=== PATIENT | male | born 1945 | race Caucasian/White ===

== ENCOUNTER 2017-04-22 16:00 | Emergency (ER) | payer OTHER, BC ==
[2017-04-22 16:23] LABS: URINE APPEARANCE Clear; URINE BILIRUBIN Negative (NEGATIVE); URINE BLOOD Negative (NEGATIVE); URINE GLUCOSE (UA) Negative (NEGATIVE); URINE KETONE Negative (NEGATIVE); URINE LEUK ESTERASE Negative (NEGATIVE); URINE NITRITE Negative (NEGATIVE); URINE PROTEIN Negative (NEGATIVE)
[2017-04-22 16:26] LABS: URINE COLOR YELLOW
[2017-04-22 16:31] VITALS: BP 145/85; PULSE 87; TEMP 97.7; BMI 26.9
[2017-04-22 16:35] LABS: BASO % 1.4 % (0-2.0); MCH 31.1 pg (25.7-33.7); MCHC 33.2 g/dl (32.0-35.9); MEAN CELL VOLUME 93.8 fl (80-96); MEAN PLT VOLUME 8.3 fl (7.5-11.1); NEUT % 51.2 % (42.8-82.8); PLATELET COUNT 242 K/MM3 (134-434); RDW 13.3 % (11.9-15.9)
[2017-04-22 16:49] LABS: EOS # 0.2 #; LYMPH # 2.9 # (8-40); MONO # 0.6 #; NEUT # 4.2 # (42.8-82.8)
[2017-04-22 16:50] LABS: BASO # 0.1 # (0.1-1)
[2017-04-22] MEDS ORDERED: SODIUM CHLORIDE 0.9% 500 ML INFUS.BAG IV ONE (17:04)
--- NOTE | 2017-04-22 17:06 | PDOC ---
History of Present Illness <Sachin Casas - Last Filed: 04/22/17 17:06> - General History Source: Patient Exam Limitations: No Limitations - History of Present Illness Initial Comments: 04/22/17 20:35 72 year old male with significant past medical history of kidney stones and HLD , who presents to the emergency room complaining of 4 days of progressively worsening right flank pain. The pain is worse with movement. Denies recent injury or heavy lifting. The patient states that this pain feels similar to the pain he experienced in the past with kidney stones except it is much more mild. Denies dysuria, hematuria, or any other urinary symptoms. Denies fever, chills, nausea, vomiting. Denies chest pain, SOB, cough. Denies recent travel, leg swelling. Allergies: penicillin and sulfa <Aicha Ness - Last Filed: 04/22/17 20:36> - General Chief Complaint: Pain Stated Complaint: RT FLANK PAIN Time Seen by Provider: 04/22/17 16:24 Past History - Past Medical History COPD: No Diabetes: Yes (PREDIABETES) HTN: Yes Hypercholesterolemia: Yes - Surgical History Abdominal Surgery: Yes (HERNIA REPAIR) - Suicide/Smoking/Psychosocial Hx Smoking History: Former smoker Have you smoked in the past 12 months: No Information on smoking cessation initiated: No Hx Alcohol Use: (nightly) <Sachin Casas - Last Filed: 04/22/17 17:06> <Aicha Ness - Last Filed: 04/22/17 20:36> - Past Medical History Allergies/Adverse Reactions: Allergies Allergy/AdvReac Type Severity Reaction Status Date / Time Penicillins Allergy Verified 04/22/17 16:03 Sulfa (Sulfonamide Allergy Verified 04/22/17 16:03 Antibiotics) Home Medications: Ambulatory Orders Alfuzosin HCl [Alfuzosin HCl ER] 10 mg PO DAILY 10/10/15 Aspirin Coated [Ecotrin -] 81 mg PO DAILY 10/10/15 Atorvastatin Ca [Lipitor] 20 mg PO HS 10/10/15 Bupropion HCl [Wellbutrin Xl -] 150 mg PO BID 10/10/15 Cyanocobalamin/Folic AC/Vit B6 [Folbee Tablet] 1 each PO BID 10/10/15 Metformin HCl 500 mg PO BID 10/10/15 [place]-3 Fatty Acids [[place]-3] 1,000 mg PO BID 10/10/15 Review of Systems - Review of Systems Able to Perform ROS?: Yes Comments:: 04/22/17 20:36 GENERAL/CONSTITUTIONAL: No fever or chills. No weakness. HEAD, EYES, EARS, NOSE AND THROAT: No change in vision. No ear pain or discharge. No sore throat. GASTROINTESTINAL: No nausea, vomiting, diarrhea or constipation. GENITOURINARY: No dysuria, frequency, or change in urination. CARDIOVASCULAR: No chest pain or shortness of breath. RESPIRATORY: No cough, wheezing, or hemoptysis. MUSCULOSKELETAL: +right sided flank pain. SKIN: No rash NEUROLOGIC: No headache, vertigo, loss of consciousness, or change in strength/ sensation. ENDOCRINE: No increased thirst. No abnormal weight change. HEMATOLOGIC/LYMPHATIC: No anemia, easy bleeding, or history of blood clots. ALLERGIC/IMMUNOLOGIC: No hives or skin allergy. <Aicha Nses - Last Filed: 04/22/17 20:36> *Physical Exam - Vital Signs Last Vital Signs Temp Pulse Resp BP Pulse Ox 97.7 F 87 16 145/85 100 04/22/17 16:00 04/22/17 16:00 04/22/17 16:00 04/22/17 16:00 04/22/17 16:00 <Sachin Casas - Last Filed: 04/22/17 17:06> - Vital Signs Last Vital Signs Temp Pulse Resp BP Pulse Ox 97.7 F 87 16 145/85 100 04/22/17 16:00 04/22/17 16:00 04/22/17 16:00 04/22/17 16:00 04/22/17 16:00 - Physical Exam Comments: 04/22/17 20:36 GENERAL: Awake, alert, and fully oriented, in no acute distress HEAD: No signs of trauma EYES: PERRLA, EOMI, sclera anicteric, conjunctiva clear ENT: Auricles normal inspection, hearing grossly normal, nares patent, oropharynx clear without exudates. Moist mucosa NECK: Normal ROM, supple, no lymphadenopathy, JVD, or masses LUNGS: Breath sounds equal, clear to auscultation bilaterally. No wheezes, and no crackles HEART: Regular rate and rhythm, normal S1 and S2, no murmurs, rubs or gallops ABDOMEN: Soft, nontender, normoactive bowel sounds. No guarding, no rebound. No masses EXTREMITIES: Normal range of motion, no edema. No clubbing or cyanosis. No cords, erythema, or tenderness BACK: No CVA tenderness. No midline spinal tenderness in cervical/thoracic/ lumbar region. No back ttp. NEUROLOGICAL: Normal speech, cranial nerves intact, negative pronator drift, 5/ 5 strength in all 4 extremities, normal sensation to light touch in all 4 extremities, normal cerebellar exam, normal gait, normal reflexes and tone SKIN: Warm, Dry, normal turgor, no rashes or lesions noted. <Aicha Ness - Last Filed: 04/22/17 20:36> ED Treatment Course - LABORATORY CBC & Chemistry Diagram: 04/22/17 16:30 04/22/17 16:30 - ADDITIONAL ORDERS Additional order review: Laboratory Results 04/22/17 16:15 Urine Color Yellow Urine Appearance Clear Urine pH 6.0 Ur Specific [place] 1.020 Urine Protein Negative Urine Glucose (UA) Negative Urine Ketones Negative Urine Blood Negative Urine Nitrite Negative Urine Bilirubin Negative Urine Urobilinogen 1.0 Ur Leukocyte Esterase Negative 04/22/17 16:30 RBC 4.79 MCV 93.8 MCHC 33.2 RDW 13.3 MPV 8.3 Neutrophils % 51.2 Lymphocytes % 36.5 Monocytes % 7.9 Eosinophils % 3.0 Basophils % 1.4 - RADIOLOGY Radiology Studies Ordered: Category Date Time Status CHEST PA & LAT [RAD] Stat Radiology 04/22/17 17:03 Ordered <Sachin Casas - Last Filed: 04/22/17 17:06> - LABORATORY CBC & Chemistry Diagram: 04/22/17 16:30 04/22/17 16:30 - ADDITIONAL ORDERS Additional order review: Laboratory Results 04/22/17 04/22/17 04/22/17 16:30 16:25 16:15 Sodium 136 Potassium 4.1 Chloride 101 Carbon Dioxide 28 Anion Gap 7 L BUN 15 Creatinine 1.1 Creat Clearance w eGFR > 60 Random Glucose 92 Calcium 9.6 Total Bilirubin 0.8 AST 28 ALT 22 Alkaline Phosphatase 56 Troponin I 0.00 Total Protein 7.5 Albumin 4.0 Urine Color Yellow Urine Appearance Clear Urine pH 6.0 Ur Specific [place] 1.020 Urine Protein Negative Urine Glucose (UA) Negative Urine Ketones Negative Urine Blood Negative Urine Nitrite Negative Urine Bilirubin Negative Urine Urobilinogen 1.0 Ur Leukocyte Esterase Negative 04/22/17 16:30 RBC 4.79 MCV 93.8 MCHC 33.2 RDW 13.3 MPV 8.3 Neutrophils % 51.2 Lymphocytes % 36.5 Monocytes % 7.9 Eosinophils % 3.0 Basophils % 1.4 - Medications Given in the ED: ED Medications Discontinued Medications Generic Name Dose Route Start Last Admin Trade Name Isidroq PRN Reason Stop Dose Admin Sodium Chloride 1,000 ml 04/22/17 17:04 04/22/17 17:15 Normal Saline - IV 04/22/17 17:05 1,000 ml ONCE ONE Administration <Aicha Ness - Last Filed: 04/22/17 20:36> *DC/Admit/Observation/Transfer <Sachin Casas - Last Filed: 04/22/17 17:06> - Attestations Scribe Attestion: 04/22/17 20:36 Documentation prepared by DIPAK Freeman, acting as director of medical review for Malena Madsen MD. <Aicha Ness - Last Filed: 04/22/17 20:36> - Discharge Dispostion Condition at time of disposition: Stable
[2017-04-22 17:12] LABS: ALK PHOS 56 U/L (32-92); ANION GAP 7 (8-16); BILIRUBIN,TOTAL 0.8 mg/dl (0.2-1.0); CALCIUM 9.6 mg/dl (8.4-10.2); CO2 28 mmol/L (22-28); CREATININE 1.1 mg/dl (0.6-1.3); GLUCOSE,RANDOM 92 mg/dl (74-106); SGOT/AST 28 U/L (10-42); SGPT/ALT 22 U/L (10-40); TOT PROT 7.5 g/dl (6.4-8.3)
[2017-04-22] MEDS ORDERED: SODIUM CHLORIDE 500 ML IV STA (20:33)
--- NOTE | 2017-04-22 20:33 | PDOC ---
*Physical Exam - Vital Signs Last Vital Signs Temp Pulse Resp BP Pulse Ox 97.7 F 87 16 145/85 100 04/22/17 16:00 04/22/17 16:00 04/22/17 16:00 04/22/17 16:00 04/22/17 16:00 ED Treatment Course - LABORATORY CBC & Chemistry Diagram: 04/22/17 16:30 04/22/17 16:30 - ADDITIONAL ORDERS Additional order review: Laboratory Results 04/22/17 04/22/17 04/22/17 16:30 16:25 16:15 Sodium 136 Potassium 4.1 Chloride 101 Carbon Dioxide 28 Anion Gap 7 L BUN 15 Creatinine 1.1 Creat Clearance w eGFR > 60 Random Glucose 92 Calcium 9.6 Total Bilirubin 0.8 AST 28 ALT 22 Alkaline Phosphatase 56 Troponin I 0.00 Total Protein 7.5 Albumin 4.0 Urine Color Yellow Urine Appearance Clear Urine pH 6.0 Ur Specific [place] 1.020 Urine Protein Negative Urine Glucose (UA) Negative Urine Ketones Negative Urine Blood Negative Urine Nitrite Negative Urine Bilirubin Negative Urine Urobilinogen 1.0 Ur Leukocyte Esterase Negative 04/22/17 16:30 RBC 4.79 MCV 93.8 MCHC 33.2 RDW 13.3 MPV 8.3 Neutrophils % 51.2 Lymphocytes % 36.5 Monocytes % 7.9 Eosinophils % 3.0 Basophils % 1.4 - Medications Given in the ED: ED Medications Discontinued Medications Generic Name Dose Route Start Last Admin Trade Name Freq PRN Reason Stop Dose Admin Sodium Chloride 1,000 ml 04/22/17 17:04 04/22/17 17:15 Normal Saline - IV 04/22/17 17:05 1,000 ml ONCE ONE Administration Progress Note - Progress Note Progress Note: Care of this patient received from Abdominal/pelvic CT performed to evaluate patient's right flank discomfort. On chest x-ray, there was question of infiltrate at the right base. Also, since the patient's flank discomfort was similar but much less severe to his previous renal colic pain, CT performed for full evaluation for presence of ureteral stones. Abdominal/pelvic CT results, interpreted by of radiology staff: No evidence of pneumonia or other acute process at base of right lung. No evidence of hydronephrosis/hydroureter ureter or ureteral stones. There was evidence of diverticulosis in the sigmoid colon without evidence of acute diverticulitis. However, in the right colon, especially at the hepatic flexure , colonic wall was thickened consistent with colitis. No clear indication that this was diverticular in nature. Other than bilateral inguinal fluid collections (consistent with post herniorrhaphy changes), study showed no significant abnormalities. Results discussed with the patient and his . He is not having any recent diarrhea or bowel changes except for mild increase in constipation in the last several days. He has not noted any black stools or blood in his stool. 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 Therefore, he is in favor of empirical treatment of the colitis which may be infectious, although not clearly related to diverticular disease. Cipro 500 mg twice a day along with Flagyl, 3 times a day for one week will be prescribed. First doses of each antibiotic will be administered here in the emergency room. Patient should return to the emergency room if he has worsening pain or experiences fever/vomiting. He should follow-up with his doctor within the next 5-7 days (earlier if possible) *DC/Admit/Observation/Transfer Diagnosis at time of Disposition: Colitis - Discharge Dispostion Disposition: HOME Condition at time of disposition: Stable - Prescriptions Prescriptions: Ciprofloxacin HCl [Cipro] 500 mg PO BID #14 tablet Ciprofloxacin HCl [Cipro] 500 mg PO BID #14 tablet Metronidazole [Flagyl -] 250 mg PO TID #21 tablet Metronidazole [Flagyl -] 250 mg PO TID #21 tablet - Referrals - Patient Instructions Printed Discharge Instructions: DI for Colitis Additional Instructions: Light diet; drink plenty of fluids Ciprofloxacin 500 mg twice a day for one week Flagyl 250 mg 3 times a day for one week Follow-up with your doctor within the next 5 days (call office tomorrow for appointment) Return to ER if you have worsening pain/fever/vomiting - Post Discharge Activity
[2017-04-22] MEDS ORDERED: CIPROFLOXACIN 500 MG TABLET (RESTRICTED TO ID) PO ONE (20:53)
[2017-04-22] MEDS ORDERED: metroNIDAZOLE 250 MG TABLET PO ONE (20:54)
[2017-04-22] MEDS ORDERED: metroNIDAZOLE 250 MG TABLET ONE (21:08)
[2017-04-22] MEDS ORDERED: CIPROFLOXACIN 250 MG TABLET (RESTRICTED TO ID) PO ONE (21:08)
== END 2017-04-22 21:27 | disposition home or self-care (01) ==
LOC: FER 16:00
PROC: 3E0337Z Introduction of Electrolytic and Water Balance Substance into Peripheral Vein, Percutaneous Approach (ICD-10-PCS; principal; 2017-04-22)
DX: K52.9 Noninfective gastroenteritis and colitis, unspecified (principal); E78.5 Hyperlipidemia, unspecified; Z87.442 Personal history of urinary calculi
CPT/HCPCS: 36415; 71020-TC; 74177-TC; 80053; 81003; 84484; 85025; 87086; 99284-25

== ENCOUNTER 2017-11-06 10:09 | Emergency (ER) | payer OTHER, BC ==
[2017-11-06 10:14] VITALS: BP 137/92; PULSE 65; TEMP 98.7; BMI 28.3
--- NOTE | 2017-11-06 10:33 | PDOC ---
Suture Removal/Wound Check HPI - History of Present Illness Chief Complaint: Laceration Stated Complaint: LEFT THUMB LACERATION Time Seen by Provider: 11/06/17 10:14 History Source: Yes: Patient Exam Limitations: Yes: No Limitations Treated at: [facility] ED - Onset of Previous Treatment Comment:: 11/06/17 11:22 72 yo M w a hx of HTN, pre-diabetes, HCL here with a 3 cm lac on his left thumb. He was using a razor knife to open a box and by accidentally cut his L thumb. He is currently experiencing no pain. He came in with a gauze pad to stop the bleeding. Upon arrival to the ER there was no active bleeding. 11/06/17 11:25 Past History - Past Medical History Allergies/Adverse Reactions: Allergies Allergy/AdvReac Type Severity Reaction Status Date / Time Penicillins Allergy Verified 11/06/17 10:09 Sulfa (Sulfonamide Allergy Verified 11/06/17 10:09 Antibiotics) Home Medications: Ambulatory Orders Alfuzosin HCl [Alfuzosin HCl ER] 10 mg PO DAILY 10/10/15 Aspirin Coated [Ecotrin -] 81 mg PO DAILY 10/10/15 Atorvastatin Ca [Lipitor] 20 mg PO HS 10/10/15 Bupropion HCl [Wellbutrin Xl -] 150 mg PO BID 10/10/15 Cyanocobalamin/Folic AC/Vit B6 [Folbee Tablet] 1 each PO BID 10/10/15 [place]-3 Fatty Acids [[place]-3] 1,000 mg PO BID 10/10/15 metFORMIN HCL [Metformin HCl] 500 mg PO BID 10/10/15 COPD: No Diabetes: Yes (PREDIABETES) HTN: Yes Hypercholesterolemia: Yes - Surgical History Abdominal Surgery: Yes (HERNIA REPAIR) - Suicide/Smoking/Psychosocial Hx Smoking History: Former smoker Have you smoked in the past 12 months: No Information on smoking cessation initiated: No Hx Alcohol Use: No (daily) Suture Removal/Wound Check PE - Physical Exam Comments: 11/06/17 10:31 Left Thumb: There is a 3 cm cut on the volar surface of the thumb distal to the DIP joint. There is full sensation and strength in the thumb. Full ROM. EXTREMITIES: No cyanosis. No clubbing. No edema. No calf tenderness. MUSCULOSKELETAL Normal range of motion at all joints. No bony deformities or tenderness. No CVA tenderness. SKIN: Warm and dry. Normal capillary refill. No rashes. No jaundice. NEUROLOGICAL: Alert, awake, appropriate. Cranial nerves 2-12 intact. No deficits to light touch and temperature in face, upper extremities and lower extremities. No motor deficits in the in face, upper extremities and lower extremities. Normoreflexic in the upper and lower extremities. Normal speech. Toes are down- going bilaterally. Gait is normal without ataxia. GENERAL: Well developed, well nourished. Awake and alert. No acute distress. HEENT: Normocephalic, atraumatic. PERRLA, EOMI. No conjunctival pallor. Sclera are non- icteric. Moist mucous membranes. Oropharynx is clear. NECK: Supple. Full ROM. No JVD. Carotid pulses 2+ and symmetric, without bruits. No thyromegaly. No lymphadenopathy. CARDIOVASCULAR: Regular rate and rhythm. No murmurs, rubs, or gallops. Distal pulses are 2+ and symmetric. PULMONARY: No evidence of respiratory distress. Lungs clear to auscultation bilaterally. No wheezing, rales or rhonchi. ABDOMINAL: Soft. Non-tender. Non-distended. No rebound or guarding. No organomegaly. Normoactive bowel sounds. PSYCHIATRIC: Cooperative. Good eye contact. Appropriate mood and affect. 11/06/17 11:16 *Review of Systems - Review of Systems Comments:: 11/06/17 11:32 SKIN: Positive: Laceration on thumb Absent: rash, itching, pallor CONSTITUTIONAL: Absent: fever, chills, diaphoresis, generalized weakness, malaise, loss of appetite HEENT: Absent: rhinorrhea, nasal congestion, throat pain, throat swelling, difficulty swallowing, mouth swelling, ear pain, eye pain, visual Changes CARDIOVASCULAR: Absent: chest pain, syncope, palpitations, irregular heart rate, lightheadedness , peripheral edema RESPIRATORY: Absent: cough, shortness of breath, dyspnea with exertion, orthopnea, wheezing, stridor, hemoptysis GASTROINTESTINAL: Absent: abdominal pain, abdominal distension, nausea, vomiting, diarrhea, constipation, melena, hematochezia GENITOURINARY: Absent: dysuria, frequency, urgency, hesitancy, hematuria, flank pain, genital pain MUSCULOSKELETAL: Absent: myalgia, arthralgia, joint swelling HEMATOLOGIC/IMMUNOLOGIC: Absent: easy bleeding, easy bruising, lymphadenopathy, frequent infections ENDOCRINE: Absent: unexplained weight gain, unexplained weight loss, heat intolerance, cold intolerance NEUROLOGIC: Absent: headache, focal weakness or paresthesias, dizziness, unsteady gait, seizure, mental status changes, bladder or bowel incontinence PSYCHIATRIC: Absent: anxiety, depression, suicidal or homicidal ideation, hallucinations. *Physical Exam - Vital Signs Last Vital Signs Temp Pulse Resp BP Pulse Ox 98.7 F 65 18 137/92 96 11/06/17 10:11/06/17 10:11/06/17 10:11/06/17 10:11/06/17 10:09 Procedures - Laceration/Wound Repair Left Medial Distal Volar 1st digit Wound Length: 2.6 to 5.0 cm Wound Explored: clean, no foreign body present Wound's Depth, Shape: superficial Irrigated w/ Saline: Yes Betadine Prep: No Anesthesia: 1% Lidocaine Wound Repaired With: Sutures Suture Size/Type: 6:0 Number of Sutures: 3 Medical Decision Making - Medical Decision Making 11/06/17 11:37 72 yo M, pre-diabetes, htn, hcl here for a superficial thumb lack. Wound was clean, sutured up with 3 stitches. Full sensation, full strength, full ROM. Updated Tetanus here in the ER. Patient will come back in 7-10 days to get stitches removed. *DC/Admit/Observation/Transfer Diagnosis at time of Disposition: Laceration of thumb - Discharge Dispostion Disposition: HOME Condition at time of disposition: Improved - Referrals Referrals: John Coburn [Primary Care Provider] - - Patient Instructions Printed Discharge Instructions: DI for Laceration Repair Additional Instructions: Apply bacitracin twice a day. Come back in 7-10 days to have the sutures removed , or go to your primary doc to have the sutures taken out. Please come back to the ER immediately if your thumb starts to become red, painful, you feel extra numbness or tingling, develop a fever or have any other concerns. - Post Discharge Activity
[2017-11-06] MEDS ORDERED: LIDOCAINE HCL 1%, 10 MG/ML (20ML VIAL) ONE (10:49)
[2017-11-06] MEDS ORDERED: DIPHTH,PERTUSS(ACELL),TET 0.5 ML DISP.SYRIN IM ONE (11:19)
--- NOTE | 2017-11-06 11:23 | PDOC ---
Attending Attestation - Resident Resident Name: Edgardo Flowers - ED Attending Attestation I have performed the following: I have examined & evaluated the patient, The case was reviewed & discussed with the resident, I agree w/resident's findings & plan, Exceptions are as noted - HPI HPI: 11/06/17 11:21 72-year-old male history of hypertension hyperlipidemia and prediabetic here with a left thumb laceration. Happened 1 hour prior to arrival patient was trying to open a box with a paperboard boxes estimator slipped subsequently lacerated his left thumb bleeding was controlled initially pain is minimal no numbness or tingling no weakness last tetanus is unknown here for sutures - Physicial Exam PE: 11/06/17 11:22 Awake alert no acute distress. Left hand reveals a volar side linear thumb laceration approximately 1 cm at the distal tip of the thumb distally the patient is neurovascularly intact has full flexion of the IP joint CMC joint 5 out of 5 bleeding is controlled with pressure hand is otherwise atraumatic - Medical Decision Making 11/06/17 11:22 Plan digital nerve block sutures to the left thumb irrigation sterile dressing discharge home with wound care instructions we'll provide tetanus his last tetanus is unknown
== END 2017-11-06 11:39 | disposition home or self-care (01) ==
LOC: FER 10:09
PROC: 0HQGXZZ Repair Left Hand Skin, External Approach (ICD-10-PCS; principal; 2017-11-06)
PROC: 3E0234Z Introduction of Serum, Toxoid and Vaccine into Muscle, Percutaneous Approach (ICD-10-PCS; 2017-11-06)
DX: S61.012A Laceration without foreign body of left thumb without damage to nail, initial encounter (principal); W26.0XXA Contact with knife, initial encounter; Y93.89 Activity, other specified; Y92.9 Unspecified place or not applicable; I10 Essential (primary) hypertension; R73.03 Prediabetes; E78.00 Pure hypercholesterolemia, unspecified; Z88.0 Allergy status to penicillin; Z88.2 Allergy status to sulfonamides; Z87.891 Personal history of nicotine dependence
CPT/HCPCS: 90715; 99283-25